=== PATIENT | male | born 1980 | race Caucasian/White ===

== ENCOUNTER 2020-12-28 16:37 | Emergency (ER) | payer OTHER, SELFPAY ==
[2020-12-28 16:41] VITALS: BP 146/83; PULSE 70; RESP 18; TEMP 37; O2SAT 94
--- NOTE | 2020-12-28 16:45 | DI.RAD_ITS ---
Exam(s) XR ELBOW LT COMPLETE EXAM: XR ELBOW LT COMPLETE CLINICAL HISTORY: l elbow burisits, swelling. TECHNIQUE: 2D digital imaging was performed. COMPARISON: No exams were available for comparison FINDINGS: BONES: No acute fracture is present. No bony destructive lesion is seen. There is a smoothly marginat ed bony density seen near the lateral epicondyle. JOINTS: The elbow is normally aligned. No joint effusion is seen. There are mild degenerative changes . SOFT TISSUE: Swelling over the olecranon. IMPRESSION: Olecranon bursitis.. DATA REPOSITORY: RADIATION DOSE DELIVERED:
--- NOTE | 2020-12-28 16:55 | ED.GENADUL_ITS ---
Discharge Plan Disposition Patient Disposition: HOME Condition: Improving Discharge Details Clinical Impression: Olecranon bursitis of left elbow Primary Care Provider: Unknown,Unknown ED Provider: Paul Hoang Home Meds and New Rx's Prescriptions: Continued ibuprofen 200 mg Tablet PO PRN PRNRF: 0 acetaminophen 500 mg Capsule 1,000 mg PO PRN PRNRF: 0 Discharge Instructions Instructions: Elbow Bursitis (ED) Additional Instructions: Apply a compressive bandage to the area while awake and out of bed for the next week. May apply ice to reduce discomfort. Do not lean or rest on the elbow. Return if you develop a fever, redness or stiffness of the joint, or any other acute concerns. Medical Decision Making This is a 40-year-old male who is been recovering from left knee surgery and is on crutches. He states that he had fallen in August and struck his left elbow but that had not had significant swelling. He reports awakening this morning with left olecranon swelling. He appears to have an olecranon bursitis. Given the previous injury the patient was referred for x-ray. No acute bony injuries. Discussed with patient the options for treatment. He will defer needle aspiration at this time. I do not feel there is evidence of an infected joint or bursa. We will apply a compressive dressing to the area, minimize trauma, and keep the arm straight. Patient understands indications to seek reevaluation. HPI General Mode of arrival: ambulatory . Date/Time Provider Initiated Documentation: 12/28/20 16:47 . Limitations to Documentation: no limitations . Information obtained by: patient . History of Present Illness 40 year old M presents to the emergency department with the chief complaint of Atraumatic left elbow swelling, described as mild, Quality is described as dull and constant, and is localized to the left and upper extremity. Patient reports no radiation. Patient started experiencing this hour(s) and it has been constant. No relieving factors improve symptom(s), No exacerbating factors reported . Patient notes no other symptoms.. Patient did receive the following treatments prior to arrival, none Related Data Home Medications Medication Instructions Recorded Confirmed acetaminophen 1,000 mg PO PRN PRN 12/28/20 12/28/20 ibuprofen PO PRN PRN 12/28/20 Allergies Allergy/AdvReac Type Severity Reaction Status Date / Time No Known Allergies Allergy Unverified 12/28/20 16:45 General Stated Complaint: Orthopedic KARINA: 4 Review of Systems Narrative: No new fall or injury, no erythema or fever. Otherwise well. Using crutches due to recovery from knee surgery. [facility] Social History Smoking risk assessment performed?: No Exam Narrative Exam Narrative: GEN: awake, alert, oriented 3. Pleasant, well groomed, interactive. HEAD: Normocephalic, atraumatic ENT: Mucous membranes moist, oropharynx unremarkable, External ear exam unremarkable EYES: PERRL, EOMI NECK: Full ROM, no ABDIAZIZ, no menigismus EXT: Full ROM, left elbow with swollen olecranon bursa, no overlying erythema, the joint is nontender, no pain with supination or pronation of the forearm. Neuro: Grossly normal neurologic exam, conversant, interactive. Psych: Speech fluent, thoughts congruent, affect normal Course Vital Signs Vital signs: Vital Signs Temperature 37 C 12/28/20 16:41 Pulse 70 12/28/20 16:41 Respiratory Rate 18 12/28/20 16:41 Blood Pressure 146/83 H 12/28/20 16:41 Pulse Oximetry 94 12/28/20 16:41 Temperature 37 C 12/28/20 16:41 Temperature Source Temporal Artery Scan 12/28/20 16:41 Pulse 70 12/28/20 16:41 Respiratory Rate 18 12/28/20 16:41 Blood Pressure 146/83 H 12/28/20 16:41 Blood Pressure Position Sitting 12/28/20 16:41 Pulse Oximetry 94 12/28/20 16:41 Oxygen Delivery Method Room Air 12/28/20 16:41 Oxygen Flow Rate 0 12/28/20 16:41 Pain Level 0 12/28/20 16:41
--- NOTE | 2020-12-28 17:31 | DI.VRAD_ITS ---
PROCEDURE INFORMATION: Exam: XR Left Elbow Exam date and time: 12/28/2020 4:55 PM Age: 40 years old Clinical indication: Patient HX: Swelling, left elbow bursitis, PT did have bad injury to elbow in August 2020. TECHNIQUE: Imaging protocol: XR Left elbow. Views: 3 or more views. COMPARISON: No relevant prior studies available. FINDINGS: Bones/joints: Three views of the left elbow reveal no acute fracture or dislocation. There is a 7 mm x 4 mm well corticated oval calcification overlapping lateral humeral epicondyle on the frontal views, possibly seen posteriorly on the lateral view. A loose body in the joint is suspected, possibly from an old fracture or possibly a degenerative calcification. This finding could be additionally evaluated by MRI, as clinically warranted. No joint effusion is seen. Soft tissues: There is prominent soft tissue swelling overlying the olecranon, best demonstrated by the lateral view. IMPRESSION: 1. Prominent soft tissue swelling overlying the olecranon. 2. No acute fracture or dislocation seen. 3. 7 mm x 4 mm well corticated oval calcification suspected to represent a loose body in the joint, possibly from an old fracture or possibly a degenerative calcification. Dictated and Authenticated by: Demian Rico MD. Ordering:NIMO Miller MD
== END 2020-12-28 17:35 | disposition home or self-care (01) ==
PROVIDERS: Emergency Provider Emergency Medicine
DX: M70.22 Olecranon bursitis, left elbow (principal)
CPT/HCPCS: 99283; 73080